=== PATIENT | female | born 1985 | race African-American/Black ===

== ENCOUNTER 2019-11-19 15:10 | Inpatient (IN) | payer MEDICAID ==
[~2019-11-19] VITALS: Ht 167.6 cm; Wt 85.7 kg
[2019-11-19] MEDS ORDERED: ACETAMINOPHEN 325MG TABLET PO PRN (16:00)
[2019-11-19] MEDS ORDERED: ONDANSETRON 4MG ODT PO ONE (16:00)
[2019-11-19 16:24] LABS: HEMATOCRIT. 32.5 % (36.0-48.0); HEMOGLOBIN. 10.3 g/dL (12.0-16.0); MEAN CORPUSCULAR HEMOGLOBIN 24.7 pg (28.0-32.0); MEAN CORPUSCULAR VOLUME 78.1 fL (81.0-99.0); MEAN PLATELET VOLUME 9.3 fl (7.4-10.4); PLATELET 214 x1000/uL (130-400); RED BLOOD CELL COUNT 4.16 mill/uL (4.2-5.4); RED CELL DISTRIBUTION WIDTH 15.4 % (11.6-14.6)
[2019-11-19 16:29] LABS: CLARITY URINE CLEAR (CLEAR); COLOR URINE YELLOW (YELLOW); KETONES URINE TRACE (NEGATIVE); LEUKOCYTE ESTERASE URINE NEGATIVE (NEGATIVE); NITRITE URINE NEGATIVE (NEGATIVE); OCCULT BLOOD URINE NEGATIVE (NEGATIVE); PROTEIN URINE TRACE (NEGATIVE); SPECIFIC GRAVITY URINE 1.036 (1.005-1.030)
[2019-11-19 16:30] LABS: CHLORIDE 110 mEq/L (98-107)
[2019-11-19 16:54] LABS: B-HCG QUANTITATIVE 2096 mIU/mL (<3)
[2019-11-19 17:36] LABS: PLATELET ESTIMATE NORMAL
[2019-11-19] MEDS ORDERED: SODIUM CHLORIDE 0.9% 1,000 ML IV ONE (18:22)
[2019-11-19] MEDS ORDERED: MORPHINE SULFATE 4 MG/ML CPJ (NOT FOR IM USE) IV STA ×2 (18:22→20:06)
[2019-11-19] MEDS ORDERED: ONDANSETRON HCL 4MG/2ML INJ IV STA ×2 (18:22→20:06)
[2019-11-19 21:40] VITALS: BP 126/83
[2019-11-19 22:00] VITALS: BP 126/83
[2019-11-19] MEDS ORDERED: PROPOFOL 200MG/20ML VIAL IV ONE (23:52)
[2019-11-19] MEDS ORDERED: DEXAMETHASONE 4MG/ML 1ML VIAL ONE (23:52)
[2019-11-19] MEDS ORDERED: ROCURONIUM BROMIDE 10MG/ML VIAL 5ML IV ONE (23:52)
[2019-11-20] MEDS ORDERED: HYDROMORPHONE HCL/PF 2MG/ML (OR) ONE (00:17)
[2019-11-20] MEDS ORDERED: METOPROLOL TARTRATE 5MG/5ML VIAL IV ONE ×2 (00:19→01:05)
[2019-11-20] MEDS ORDERED: SKIN ADHESIVE 0.7 GM EA TOP ONE (00:30)
[2019-11-20] MEDS ORDERED: NEOSTIGMINE METHYLSULFATE 1MG/ML 10 ML VIAL ONE (00:56)
[2019-11-20] MEDS ORDERED: GLYCOPYRROLATE 0.2 MG/ML 2ML VIAL ONE (00:56)
[2019-11-20] MEDS ORDERED: ONDANSETRON HCL 4MG/2ML INJ IV PRN ×2 (01:15→01:30)
[2019-11-20] MEDS ORDERED: MEPERIDINE HCL/PF 25MG/ML CPJ IV PRN (01:15)
[2019-11-20] MEDS ORDERED: LABETALOL 5MG/ML SYR 20 MG/4 ML SYRINGE IV PRN (01:15)
[2019-11-20] MEDS ORDERED: HYDROMORPHONE HCL/PF 2MG/ML CPJ IV PRN (01:15)
[2019-11-20] MEDS ORDERED: MORPHINE SULFATE 2 MG/ML CPJ (NOT FOR IM USE) IV PRN (01:30)
[2019-11-20 02:30] VITALS: BP 113/70
[2019-11-20] MEDS ORDERED: DEXT 5%/0.45% NACL KCL 20MEQ/L 1,000 ML IV SCH (03:00)
[2019-11-20] MEDS: CEFAZOLIN 1000MG PREMIX 50 ML IV SCH ×3 (04:25→20:29)
[2019-11-20 07:35] LABS: HEMATOCRIT. 28.2 % (36.0-48.0); HEMOGLOBIN. 8.8 g/dL (12.0-16.0); MEAN CORPUSCULAR HEMOGLOBIN 24.7 pg (28.0-32.0); MEAN CORPUSCULAR VOLUME 78.6 fL (81.0-99.0); MEAN PLATELET VOLUME 9.8 fl (7.4-10.4); PLATELET 182 x1000/uL (130-400); RED BLOOD CELL COUNT 3.59 mill/uL (4.2-5.4); RED CELL DISTRIBUTION WIDTH 15.7 % (11.6-14.6)
[2019-11-20] MEDS: FAMOTIDINE 20MG/2ML VIAL IV SCH ×2 (10:02→20:29)
[2019-11-20 20:00] VITALS: BP 121/66
[2019-11-20 21:16] LABS: PLATELET ESTIMATE NORMAL
[2019-11-21] VITALS: BP 107/61
[2019-11-21 04:00] VITALS: BP 99/47
[2019-11-21] MEDS: CEFAZOLIN 1000MG PREMIX 50 ML IV SCH (04:14)
[2019-11-21 06:43] LABS: BASOPHILS % 0.2 % (0.0-2.0); HEMATOCRIT. 27.3 % (36.0-48.0); HEMOGLOBIN. 8.5 g/dL (12.0-16.0); LYMPHOCYTES % 16.8 % (20.0-50.0); MEAN CORPUSCULAR HEMOGLOBIN 24.7 pg (28.0-32.0); MEAN CORPUSCULAR VOLUME 78.8 fL (81.0-99.0); MEAN PLATELET VOLUME 10.5 fl (7.4-10.4); MONOCYTES % 8.8 % (2.0-8.0); NEUTROPHILS % 74.2 % (40.0-76.0); PLATELET 204 x1000/uL (130-400); RED BLOOD CELL COUNT 3.46 mill/uL (4.2-5.4); RED CELL DISTRIBUTION WIDTH 15.8 % (11.6-14.6)
[2019-11-21 06:48] LABS: CHLORIDE 107 mEq/L (98-107)
[2019-11-21 08:00] VITALS: BP 102/67
[2019-11-21] MEDS: FAMOTIDINE 20MG/2ML VIAL IV SCH (08:40)
[2019-11-21 12:02] VITALS: BP 102/67
== END 2019-11-21 14:55 | disposition home or self-care (01) | DRG 545 ==
LOC: ER 15:10 → 6EST 20:00 → ENRESERV 20:35
PROVIDERS: ADMIT Obstetrics & Gynecology; ATTEND Obstetrics & Gynecology
PROC: 0UB60ZZ Excision of Left Fallopian Tube, Open Approach (ICD-10-PCS; principal; 2019-11-20)
PROC: 10T20ZZ Resection of Products of Conception, Ectopic, Open Approach (ICD-10-PCS; 2019-11-20)
PROC: 0UB00ZZ Excision of Right Ovary, Open Approach (ICD-10-PCS; 2019-11-20)
DX: O00.102 Left tubal pregnancy without intrauterine pregnancy (principal); D62 Acute posthemorrhagic anemia; N83.8 Other noninflammatory disorders of ovary, fallopian tube and broad ligament; K66.1 Hemoperitoneum; O26.891 Other specified pregnancy related conditions, first trimester; O99.011 Anemia complicating pregnancy, first trimester
CPT/HCPCS: 36415; 76801; 80048; 80053; 81003; 84702; 85025; 86850; 86900; 88302; 88304; 93005; 96374; 99291; J0690; J1100; J1170; J2270; J2405; J2704; J2710; J3490; J7030; Q0162